=== PATIENT | female | born 1945 | race African-American/Black ===

== ENCOUNTER 2017-08-09 00:58 | Inpatient (IN) | payer MEDICARE, MEDICAID ==
[2017-08-09] VITALS (9 sets, daily range): BP systolic 93–152; BP diastolic 50–116
[~2017-08-09] VITALS: Ht 160 cm; Wt 130.7 kg
[~2017-08-09 00:58] MED LIST: ALPHAGAN P5 M2 OP; AMIODARONE HCL100 MG ORAL; AMIODARONE HCL400 M1 ORAL; BETAMETHASONE V15 GM TP; CARVEDILOL12.5 MG ORAL; CATAPRES0.2 MG ORAL; FUROSEMIDE40 MG ORAL; NORVASC10 MG ORAL; NOVOLOG100 UNIT/3 SUBQ; UNOBMED
[2017-08-09 01:49] LABS: BASOPHILS % (AUTO) 1.1 % (0.0-2.0); EOSINOPHILS % (AUTO) 0.4 % (0.0-3.0); HEMATOCRIT 39.8 % (37.0-47.0); HEMOGLOBIN 12.2 G/DL (12.0-16.0); LYMPHOCYTES % (AUTO) 13.7 % (20.0-45.0); MEAN CORPUSCULAR VOLUME 95 FL (80-99); MONOCYTES % (AUTO) 13.4 % (1.0-10.0); NEUTROPHILS % (AUTO) 71.4 % (45.0-75.0); PLATELET COUNT 223 K/UL (150-450); RED CELL DISTRIBUTION WIDTH 16.7 % (11.6-14.8); WHITE BLOOD COUNT 10.6 K/UL (4.8-10.8)
[2017-08-09 02:09] LABS: INR 1.1 (0.9-1.1)
[2017-08-09] MEDS: DEXTROSE 10% IV SCH ×2 (02:16→08:01)
[2017-08-09 02:18] LABS: ALANINE AMINOTRANSFERASE 13 U/L (12-78); ALBUMIN 2.3 G/DL (3.4-5.0); ALBUMIN/GLOBULIN RATIO 0.4 (1.0-2.7); ALKALINE PHOSPHATASE 104 U/L (46-116); ANION GAP 11 mmol/L (5-15); ASPARTATE AMINO TRANSFERASE 21 U/L (15-37); BILIRUBIN,TOTAL 1.3 MG/DL (0.2-1.0); BLOOD UREA NITROGEN 45 mg/dL (7-18); CALCIUM 8.5 MG/DL (8.5-10.1); CARBON DIOXIDE 23 MMOL/L (21-32); CHLORIDE 100 MMOL/L (98-107); CREATININE 5.9 MG/DL (0.55-1.30); SODIUM 135 MMOL/L (136-145)
[2017-08-09 02:20] LABS: POTASSIUM 7.1 MMOL/L (3.5-5.1)
[2017-08-09 02:21] LABS: BILIRUBIN,DIRECT 0.2 MG/DL (0.0-0.3)
[2017-08-09] MEDS ORDERED: Sodium Bicarbonate 50ml Carp IV ONE ×2 (02:30→07:30)
[2017-08-09] MEDS ORDERED: Sodium Polystyrene Sulfonate 15gm Powder ORAL ONE (02:30)
[2017-08-09] MEDS ORDERED: Calcium Gluconate 1gm/10ml vial IVP ONE ×2 (02:30→07:30)
--- NOTE | 2017-08-09 02:32 | Emergency Room Report ---
History of Present Illness General Chief Complaint: General Complaint Source: Patient, Medical Record, EMS Present Illness HPI Is a 72-year-old female with a history of diabetes, high blood pressure, atrial fibrillation and renal failure and hemodialysis. Her dialysis days are Tuesday, Tuesday, and Tuesday. She was scheduled for dialysis today but has not done. Her grandson called 911 because patient was shaky. Patient said that she's been weak all day. Did not eat. He take her Lantus and glipizide. Denies any nausea vomiting. Her dialysis catheter wasn't working and she had procedure done to open it up yesterday. She denies any fever chills but no nausea no vomiting. No chest pain. Allergies: Coded Allergies: JEREMIAH INHIBITORS (Verified Allergy, Intermediate, 08/09/17) Patient History Past Medical History: see triage record, old chart reviewed, DM, HTN, renal disease, dialysis Past Surgical History: other Pertinent Family History: none Social History: Denies: smoking Now: No Immunizations: other Reviewed Nursing Documentation: PMH: Agreed, PSxH: Agreed Nursing Documentation-PMH Hx Cardiac Problems: Yes - CHF Hx Hypertension: Yes Hx COPD: Yes Hx Diabetes: Yes Hx Dialysis: Yes - M,W,F renal failure Review of Systems Constitutional: Reports: weakness Eye: Denies: eye pain, blurred vision ENT: Denies: ear pain, nose congestion, throat swelling Respiratory: Denies: cough, shortness of breath Cardiovascular: Denies: chest pain, palpitations Gastrointestinal: Denies: abdominal pain, diarrhea, nausea, vomiting Musculoskeletal: Denies: back pain, joint pain Skin: Denies: rash Neurological: Denies: headache, numbness Endocrine: Denies: increased thirst, increased urine Hematologic/Lymphatic: Denies: easy bruising All Other Systems: negative except mentioned in HPI Physical Exam Vital Signs Date Time Temp Pulse Resp B/P (MAP) Pulse Ox O2 Delivery O2 Flow Rate FiO2 08/09/17 00:57 97.9 90 16 122/60 98 Room Air 97.9 vitals normal Sp02 EP Interpretation: reviewed, normal General Appearance: well appearing, no apparent distress, lethargic, obese Head: normocephalic, atraumatic Eyes: bilateral eye PERRL, bilateral eye EOMI ENT: hearing grossly normal, normal pharynx Neck: full range of motion, supple, no meningismus Respiratory: chest non-tender, lungs clear, normal breath sounds Cardiovascular #1: regular rate, rhythm, no murmur Gastrointestinal: normal bowel sounds, non tender, no mass, no organomegaly, no bruit, non-distended Musculoskeletal: back normal, normal range of motion, other - chronic skin thickening secondary to lymhedema of lower extremities Neurologic: grossly normal Psychiatric: mood/affect normal Skin: warm/dry Procedures Critical Care Time Critical Care Time Critical care is mandated in this patient who presented with metabolic encephalopathy secondary to hypoglycemia and hyperkalemia. Patient require my urgent intervention to attenuate the risks of metabolic collapse which may lead to cardiovascular collapse and . Critical care time is 35 minutes excluding any reportable procedure. Critical care time included evaluation, multiple reevaluation, looking at old charts, interpreting laboratory and diagnostic data, discussing case with patient and family and consultants, and charting. Medical Decision Making Diagnostic Impression: Primary Impression: Acute metabolic encephalopathy Additional Impressions: Hypoglycemia Hyperkalemia Atrial fibrillation, controlled Fluid overload Qualified Codes: E87.70 - Fluid overload, unspecified Morbid obesity Lymphedema of both lower extremities ER Course Patient presents with acute altered mental status. Blood glucose was low. She required several rounds of dextrose. I put her on the deep tendon drip. Her hyperkalemia also treated. Patient with knee dialysis. I contacted Dr. Bradley for admission. I have Dr. Bradley patient will come over one to 2 hour timeframe. No response. When the patient to the on-call who happened to be Dr. Kwong. Laboratory Tests Test 08/09/17 01:44 White Blood Count 10.6 K/UL (4.8-10.8) Red Blood Count 4.20 M/UL (4.20-5.40) Hemoglobin 12.2 G/DL (12.0-16.0) Hematocrit 39.8 % (37.0-47.0) Mean Corpuscular Volume 95 FL (80-99) Mean Corpuscular Hemoglobin 29.0 PG (27.0-31.0) Mean Corpuscular Hemoglobin Concent 30.6 G/DL (32.0-36.0) L Red Cell Distribution Width 16.7 % (11.6-14.8) H Platelet Count 223 K/UL (150-450) Mean Platelet Volume 6.6 FL (6.5-10.1) Neutrophils (%) (Auto) 71.4 % (45.0-75.0) Lymphocytes (%) (Auto) 13.7 % (20.0-45.0) L Monocytes (%) (Auto) 13.4 % (1.0-10.0) H Eosinophils (%) (Auto) 0.4 % (0.0-3.0) Basophils (%) (Auto) 1.1 % (0.0-2.0) Prothrombin Time 11.2 SEC (9.30-11.50) Prothromb Time International Ratio 1.1 (0.9-1.1) Sodium Level 135 MMOL/L (136-145) L Potassium Level 7.1 MMOL/L (3.5-5.1) *H Chloride Level 100 MMOL/L (98-107) Carbon Dioxide Level 23 MMOL/L (21-32) Anion Gap 11 mmol/L (5-15) Blood Urea Nitrogen 45 mg/dL (7-18) H Creatinine 5.9 MG/DL (0.55-1.30) H Estimat Glomerular Filtration Rate mL/min (>60) Glucose Level 33 MG/DL (74-106) *L Calcium Level 8.5 MG/DL (8.5-10.1) Total Bilirubin 1.3 MG/DL (0.2-1.0) H Direct Bilirubin 0.2 MG/DL (0.0-0.3) Aspartate Amino Transf (AST/SGOT) 21 U/L (15-37) Alanine Aminotransferase (ALT/SGPT) 13 U/L (12-78) Alkaline Phosphatase 104 U/L (46-116) Troponin I 0.011 ng/mL (0.000-0.056) Total Protein 8.6 G/DL (6.4-8.2) H Albumin 2.3 G/DL (3.4-5.0) L Globulin 6.3 g/dL Albumin/Globulin Ratio 0.4 (1.0-2.7) L Lab Results Impression labs with hypoglycemia and hyperkalemia EKG Diagnostic Results Rate: normal Rhythm: other - afib ST Segments: other - NSST changes ASA given to the pt in ED: No Rhythm Strip Diag. Results Rhythm Strip Time: 02:31 EP Interpretation: yes Rate: 77 Rhythm: no PVC's, no ectopy, other - afib Chest X-Ray Diagnostic Results Chest X-Ray Diagnostic Results : Chest X-Ray Ordered: Yes # of Views/Limited/Complete: 1 View Indication: Shortness of Breath EP Interpretation: Yes Interpretation: no effusion, no pneumothorax, other - CM with vasc congestion Impression: Other - CM with chf Electronically Signed by: Km Busby MD Last Vital Signs Date Time Temp Pulse Resp B/P (MAP) Pulse Ox O2 Delivery O2 Flow Rate FiO2 08/09/17 01:52 97.9 88 22 93/50 98 Room Air 97.9 Status: improved Disposition: ADMITTED INPATIENT Condition: Serious KM BUSBY M.D. Aug 09, 2017 02:32
[2017-08-09] MEDS ORDERED: Morphine Sulfate 4mg/ml Inj IVP ONE (03:15)
[2017-08-09 04:35] LABS: ANION GAP 7 mmol/L (5-15); BLOOD UREA NITROGEN 44 mg/dL (7-18); CALCIUM 8.6 MG/DL (8.5-10.1); CARBON DIOXIDE 26 MMOL/L (21-32); CHLORIDE 100 MMOL/L (98-107); CREATININE 5.9 MG/DL (0.55-1.30); SODIUM 132 MMOL/L (136-145)
[2017-08-09 04:39] LABS: POTASSIUM 8.2 MMOL/L (3.5-5.1)
[2017-08-09] MEDS ORDERED: Glucagon 1mg Inj ONE (04:44)
[2017-08-09] MEDS ORDERED: Glucagon 1mg Inj IV ONE ×2 (04:45→06:00)
[2017-08-09 05:39] LABS: ANION GAP 8 mmol/L (5-15); BLOOD UREA NITROGEN 46 mg/dL (7-18); CALCIUM 8.3 MG/DL (8.5-10.1); CARBON DIOXIDE 25 MMOL/L (21-32); CHLORIDE 101 MMOL/L (98-107); CREATININE 6.1 MG/DL (0.55-1.30); SODIUM 134 MMOL/L (136-145)
[2017-08-09 05:45] LABS: POTASSIUM 6.6 MMOL/L (3.5-5.1)
[2017-08-09] MEDS ORDERED: SandoSTATIN 50mcg Inj IVP ONE ×2 (06:00→06:30)
[2017-08-09] MEDS ORDERED: Heparin Sod 1000 units/ml 10ml IV PRN ×3 (07:00→18:15)
[2017-08-09] MEDS ORDERED: Octreotide Acetate 500 MCG in Sodium Chloride 500ML 499 ML IV ONE (07:30)
[2017-08-09] MEDS ORDERED: Morphine Sulfate 4mg/ml Inj IVP PRN ×2 (08:15→12:00)
[2017-08-09] MEDS ORDERED: Heparin 5000 units/ml inj SUBQ SCH (09:00)
[2017-08-09] MEDS ORDERED: Amiodarone 200mg tab ORAL SCH ×2 (09:00→12:40)
[2017-08-09] MEDS: Docusate 100mg cap ORAL SCH ×2 (09:00→17:48)
[2017-08-09] MEDS ORDERED: Carvedilol 12.5mg tab ORAL SCH (09:00)
[2017-08-09] MEDS ORDERED: Aspirin EC 81mg tab ORAL SCH (09:00)
[2017-08-09] MEDS: Brimonidine 0.2% Opth Sol BOTH EYES SCH ×2 (09:00→17:48)
[2017-08-09] MEDS ORDERED: Nephrovite tab (Rena-Vite) ORAL SCH (09:00)
--- NOTE | 2017-08-09 10:06 | Diagnostic Imaging Report ---
Indication: Dyspnea Comparison: 04/22/2015 A single view chest radiograph was obtained. Findings: There is enlargement of the cardiac silhouette with pulmonary vascular redistribution and prominence, hazy vessel margins and the suggestion of interstitial edema consistent with CHF. Bones are slightly osteopenic. IMPRESSION: Congestive heart failure
[2017-08-09] MEDS ORDERED: Lidocaine 1% MPF 10mg/ml 5ml INJ ONE (12:00)
--- NOTE | 2017-08-09 12:11 | History & Physical ---
History and Physical History & Physicial #[id number] QUITA PRECIADO Aug 09, 2017 12:10
[2017-08-09] MEDS ORDERED: Imdur 30mg tab ORAL SCH (12:15)
--- NOTE | 2017-08-09 18:30 | Cardiology Report ---
APPROVED REPORT EKG Measurement Heart [id number] Atrial fibrillation Abnormal ECG
[2017-08-09] MEDS: Carvedilol 12.5mg tab ORAL SCH (20:14)
[2017-08-09] MEDS: Heparin 5000 units/ml inj SUBQ SCH (20:17)
--- NOTE | 2017-08-09 21:15 | History and Physical Report ---
DATE OF ADMISSION: 08/09/2017 REASON FOR ADMISSION: The patient with end-stage renal disease presented with hypoglycemia and hyperkalemia. HISTORY OF PRESENT ILLNESS: This is a very pleasant 72-year-old female, patient of mine who has had end-stage renal disease secondary to diabetic nephropathy as well as hypertension, has been under my care, getting dialyzed three days a week on Tuesday, Tuesday, and Tuesday. Apparently on Tuesday, she missed her dialysis because she has not been feeling good. She has been very sleepy. She was brought to the emergency room of [facility] on the wee hours of 08/09/2017, was found to have blood sugars in the range of 30s, which was persistent, has been started on D10W at 80 mL/hour in order to keep her blood sugars up. Apparently according to the ER doctor, she has been taking glipizide, however, I do not have any records that she was given glipizide by myself or is on the list of her medications. She apparently has been taking Prandin previously. I am not sure who gave her the glipizide. Subsequently, she has been started on octreotide by the ER doctor and also was found to have a serum potassium of 7.1 mEq per liter and it was decided to be admitted. She denies, however, any chest pain or shortness of breath. She has a wound on the bottom of her left foot, which is under the care of a screen making supervisor at [facility] and she is having a lot of pain in that foot. PAST MEDICAL HISTORY: Significant for end-stage renal disease, chronic obstructive pulmonary disease, type 2 diabetes mellitus, previous congestive heart failure, hypothyroidism, morbid obesity, sleep apnea, which is obstructive in nature. She also has had previous sepsis with bacteremia due to PermCath infection. PAST SURGICAL HISTORY: Status post AV fistula creation on the left arm, status post subsequent transformation of the AV fistula to graft, status post recent thrombectomy of AV graft, history of myomectomy of the uterine fibroma, previous PermCath placement and replacement. MEDICATIONS: Her medications prior to admission have been aspirin 81 mg p.o. daily, Astelin two sprays in each nostril daily, Nephro-Jalen one tablet p.o. daily, amiodarone 200 mg p.o. daily, Coreg 12.5 mg p.o. b.i.d., clonidine 0.1 mg p.o. b.i.d., insulin Lantus 4 units subcutaneous at bedtime, Imdur 60 mg p.o. daily, Synthroid 0.075 mg p.o. daily, nifedipine XL 90 mg p.o. daily, and Protonix 40 mg p.o. daily. ALLERGIES: JEREMIAH inhibitors, which causes swelling and itching. SOCIAL HISTORY: Does not smoke at this point. No alcohol. She used to smoke, quit many years ago. She is a retired and now is in [facility]. FAMILY HISTORY: Breast cancer in the mother, heart disease in her sister, and prostate cancer in her father. REVIEW OF SYSTEMS: GENERAL: She has been feeling very tired. CARDIOVASCULAR: Denies any chest pain, dyspnea with exertion, or orthopnea. SKIN: Denies any rash or photosensitivity. She has a wound on the bottom of her left foot. GENITOURINARY: She is almost anuric, on hemodialysis. NEUROLOGICAL: She has some shooting pain and paresthesia in the lower extremities compatible with neuropathy. HEMATOLOGICAL: Denies any easy bruising or easy bleeding. ENDOCRINE: Blood sugar apparently dropped in the range of 30s and has been persistent. GASTROINTESTINAL: Denies any nausea, vomiting, diarrhea, melena, or hematochezia. RESPIRATORY: Denies any cough, purulent sputum production, hemoptysis, or wheezing. The remainder of her review of the systems has been essentially negative. PHYSICAL EXAMINATION: GENERAL: She does not seem to be in much acute distress, lying down in bed. VITAL SIGNS: Blood pressure is 128/83, pulse of 77, respirations 17, and temperature 97.9 degrees. HEENT: Head is atraumatic. Eyes, pupils reactive to light. No evidence of papilledema. Ears, canals are clear. Tympanic membranes are intact. Nose is patent without any nasal discharge. Throat without inflammation or exudate. NECK: Supple. Jugular venous distention is somewhat increased. No cervical adenopathy. No thyromegaly. HEART: Regular rhythm. No gallop. LUNGS: Clear to auscultation. ABDOMEN: Supple. Bowel sounds positive. No hepatosplenomegaly. EXTREMITIES: Lower extremity shows no cyanosis or clubbing. No pedal edema. NEUROLOGICAL: Cranial nerves are intact. Deep tendon reflexes are symmetrically decreased in both lower extremities. LABORATORY AND DIAGNOSTIC DATA: Sodium of 134, potassium is 6.6 after the cocktail has been given, chloride 101, carbon dioxide 25, BUN 46, and creatinine 6.1. Glucose initially was 33 and now is 103. WBC 10.6, hemoglobin is 12.2, hematocrit 39.8, and platelets of 223. IMPRESSION: 1. End-stage renal disease. 2. Persistent hypoglycemia, possibly due to the fact that she has taken sulfonylurea in the presence of renal failure. I am not sure where she got the glipizide. 3. Type 2 diabetes mellitus, insulin requiring. 4. Left foot diabetic ulcer. 5. Hyperkalemia. PLAN: She is going to be admitted to [facility]. Urgent hemodialysis is going to be ordered. She is also started on D10W, which we will continue at this point. We will discontinue octreotide. Once her sugar is stabilized, she probably can be discharged. Epi Bradley M.D. DR: USHA JOB#: [id number] CC:
[2017-08-09] MEDS: Morphine Sulfate 2mg/ml Inj IVP PRN (22:18)
[2017-08-10] VITALS: BP 112/62
[2017-08-10 04:00] VITALS: BP 137/71
[2017-08-10] MEDS: Morphine Sulfate 2mg/ml Inj IVP PRN ×3 (05:16→20:42)
[2017-08-10 08:00] VITALS: BP 125/78
[2017-08-10] MEDS: Heparin 5000 units/ml inj SUBQ SCH ×2 (09:31→20:40)
[2017-08-10] MEDS: Nephrovite tab (Rena-Vite) ORAL SCH (09:40)
[2017-08-10] MEDS: Aspirin EC 81mg tab ORAL SCH (09:40)
[2017-08-10] MEDS: Amiodarone 200mg tab ORAL SCH (09:40)
[2017-08-10] MEDS: Brimonidine 0.2% Opth Sol BOTH EYES SCH ×2 (09:40→17:20)
[2017-08-10] MEDS: Carvedilol 12.5mg tab ORAL SCH ×2 (09:41→20:42)
[2017-08-10] MEDS: Imdur 30mg tab ORAL SCH (09:41)
[2017-08-10] MEDS: Docusate 100mg cap ORAL SCH ×2 (09:41→17:20)
[2017-08-10 12:00] VITALS: BP 152/99
[2017-08-10 16:00] VITALS: BP 149/83
--- NOTE | 2017-08-10 16:39 | General Progress Note ---
Assessment/Plan Assessment/Plan 1) ESRd 2) Prolonged HD, better now 3) No CHF Plan: Will HD today Accuchecks needs to be checked Subjective Allergies: Coded Allergies: JEREMIAH INHIBITORS (Verified Allergy, Intermediate, 08/09/17) Subjective unfortunaely the nursing staff dropped the ball, the accuchecks were not checked since yesterday, even though the order was there, she had Hd yesterday, she is supposed to have HD today again Objective Last 24 Hour Vital Signs Date Time Temp Pulse Resp B/P (MAP) Pulse Ox O2 Delivery O2 Flow Rate FiO2 08/10/17 14:38 98.2 08/10/17 12:00 98.2 98 22 152/99 94 Room Air 98.2 08/10/17 11:40 95 08/10/17 10:36 92 18 97 Room Air 21 08/10/17 10:33 91 18 96 Room Air 21 08/10/17 08:01 98.6 08/10/17 08:00 98.0 97 22 125/78 93 Room Air 98.0 08/10/17 07:45 94 08/10/17 04:00 93 08/10/17 04:00 98.6 88 20 137/71 94 Room Air 98.6 08/10/17 00:00 93 08/10/17 00:00 98.4 82 20 112/62 94 Room Air 98.4 08/09/17 20:14 79 111/63 08/09/17 20:00 98.1 79 20 111/63 94 Room Air 98.1 08/09/17 20:00 85 Intake and Output 08/09/17 08/10/17 19:00 07:00 Intake Total 940 ml 100 ml Output Total 0 ml 0 ml Balance 940 ml 100 ml Intake Oral 420 ml 100 ml IV Total 520 ml Output Urine Total 0 ml 0 ml # Bowel Movements 4 3 Height (Feet): 5 Height (Inches): 3.00 Weight (Pounds): 130 General Appearance: WD/WN, no apparent distress EENT: PERRL/EOMI Neck: non-tender, normal alignment Cardiovascular: normal rate, regular rhythm, no JVD Respiratory/Chest: lungs clear, decreased breath sounds Abdomen: normal bowel sounds, non tender Extremities: normal range of motion Edema: moderate edema Neurologic: energy conservation director II-XII grossly normal QUITA PRECIADO Aug 10, 2017 16:39
[2017-08-10] MEDS ORDERED: Lidocaine 1% MPF 10mg/ml 5ml INJ SCH (16:45)
[2017-08-10] MEDS: NovoLOG Insulin Flexpen SUBQ SCH ×2 (17:20→20:39)
[2017-08-10 20:00] VITALS: BP 133/59
[2017-08-10] MEDS: Zolpidem 5mg tab ORAL PRN (22:51)
[2017-08-11] VITALS: BP 129/59
[2017-08-11] MEDS: Morphine Sulfate 2mg/ml Inj IVP PRN ×5 (01:11→22:48)
[2017-08-11 04:00] VITALS: BP 139/69
[2017-08-11] MEDS: NovoLOG Insulin Flexpen SUBQ SCH ×4 (05:46→21:21)
[2017-08-11 08:00] VITALS: BP 151/73
[2017-08-11 08:39] LABS: BASOPHILS % (AUTO) 1.6 % (0.0-2.0); EOSINOPHILS % (AUTO) 0.8 % (0.0-3.0); HEMATOCRIT 35.1 % (37.0-47.0); HEMOGLOBIN 10.9 G/DL (12.0-16.0); LYMPHOCYTES % (AUTO) 25.9 % (20.0-45.0); MEAN CORPUSCULAR VOLUME 97 FL (80-99); MONOCYTES % (AUTO) 14.8 % (1.0-10.0); NEUTROPHILS % (AUTO) 56.9 % (45.0-75.0); PLATELET COUNT 196 K/UL (150-450); RED BLOOD COUNT 3.64 M/UL (4.20-5.40); RED CELL DISTRIBUTION WIDTH 16.8 % (11.6-14.8); WHITE BLOOD COUNT 8.9 K/UL (4.8-10.8)
[2017-08-11 08:44] LABS: ANION GAP 8 mmol/L (5-15); BLOOD UREA NITROGEN 39 mg/dL (7-18); CARBON DIOXIDE 29 MMOL/L (21-32); CHLORIDE 99 MMOL/L (98-107); CREATININE 5.2 MG/DL (0.55-1.30); POTASSIUM 4.8 MMOL/L (3.5-5.1); SODIUM 136 MMOL/L (136-145)
[2017-08-11] MEDS: Brimonidine 0.2% Opth Sol BOTH EYES SCH ×2 (09:54→18:25)
[2017-08-11] MEDS: Imdur 30mg tab ORAL SCH (09:56)
[2017-08-11] MEDS: Aspirin EC 81mg tab ORAL SCH (09:57)
[2017-08-11] MEDS: Amiodarone 200mg tab ORAL SCH (09:57)
[2017-08-11] MEDS: Carvedilol 12.5mg tab ORAL SCH ×2 (09:58→21:16)
[2017-08-11] MEDS: Docusate 100mg cap ORAL SCH ×2 (09:58→18:00)
[2017-08-11] MEDS: Nephrovite tab (Rena-Vite) ORAL SCH (09:58)
[2017-08-11] MEDS: Heparin 5000 units/ml inj SUBQ SCH ×2 (09:59→21:20)
--- NOTE | 2017-08-11 11:21 | Wound Care Consultation ---
Wound Assessment Wound Assessment #1: Wound Number: 1 Wound Present on Admission: Yes New Wound: No Status Change of Wound: No Wound Location Body Site Modif: mid Wound Location Body Site: other - sacrococcygeal Wound Type: pressure ulcer Keturah Test: Does not Keturah Pressure Ulcer Stage: Deep Tissue Injury Wound Thickness: Full Thickness Wound Length: 7.5 Wound Width: 6.5 Wound Depth: utd Percent of Wound Purple/Maroon: 100 Wound Drainage Amount: None Wound Drainage Odor: None/Absent Tissue Surrounding Wound: Erythemic Wound General Appearance: Reddened - purple Wound Assessment #2: Wound Number: 2 Wound Present on Admission: Yes New Wound: No Status Change of Wound: No Wound Location Body Site Modif: left, plantar Wound Location Body Site: foot Wound Type: other Keturah Test: Does not Keturah Vascular Issues: diabetic foot ulcers Wound Thickness: Full Thickness Wound Length: 9.0 Wound Width: 5.5 Wound Depth: utd Percent of Wound Bed Yellow/Wh: 60 Percent of Wound Purple/Maroon: 40 Wound Drainage Description: Serosanguineous Wound Drainage Amount: Moderate Wound Drainage Odor: None/Absent Tissue Surrounding Wound: Indurated Wound General Appearance: Reddened - yellow, Draining Wound Assessment #3: Wound Number: 3 Wound Present on Admission: Yes New Wound: No Status Change of Wound: No Wound Location Body Site Modif: right, plantar Wound Location Body Site: foot - and 1st metatarsal head Keturah Test: Does not Keturah Vascular Issues: diabetic foot ulcers Wound Thickness: Full Thickness Percent of Wound Purple/Maroon: 100 Wound Drainage Amount: None Wound Drainage Odor: None/Absent Tissue Surrounding Wound: Intact Wound General Appearance: Reddened - maroon Wound Comment #1 Sacrococcygeal SDTI pressure ulcer #2 Left plantar foot and heel diabetic foot ulcer. Surrounding skin with Maroon discoloration and indurated. #3 Right plantar foot and 1st metatarsal head with maroon discoloration. Possible s/p callus removal. #4 Chemical burn on abdominal folds Recommendation -Local wound per protocol on sacrococcygeal area -Keep clean and dry -Offload both heels -Heel protector on both heels -Optimize nutrition -Turn and reposition -Low air loss mattress -Podiatry consult for diabetic foot ulcer and callus on left and right foot -Assess and f/u accordingly for any changes OLY ELMORE RN Aug 11, 2017 11:21
[2017-08-11 12:00] VITALS: BP 124/70
--- NOTE | 2017-08-11 15:52 | Consultation ---
Consult Note Assessment/Plan A/ 1) Diabetic foot ulcer - infected - possible FB 2) DM 3) ESRD 4) Lymphedema 5) Obese P/ 1) Cultures of left foot pending 2) Start Vanco pharmacy dosing 3) Arterial ultz BLE 4) MRI left ankle to evaluate for osteo, possible foreign body 5) Wound care orders changed 6) Will follow Thank you Baltazar Nichols DPM Aug 11, 2017 15:52
--- NOTE | 2017-08-11 15:57 | General Progress Note ---
Assessment/Plan Assessment/Plan 1) ESRd 2) Prolonged hypoglycemia, better now 3) No CHF 4) diabetic heel ulcer, R/o osteo Plan: Will HD tomorrow podiatry consult IV vanco MRI of the L foot Subjective Allergies: Coded Allergies: JEREMIAH INHIBITORS (Verified Allergy, Intermediate, 08/09/17) Subjective She is having an ulcer on the L heel with pain, no c/p or sob, she was dialyzed yesterday Objective Last 24 Hour Vital Signs Date Time Temp Pulse Resp B/P (MAP) Pulse Ox O2 Delivery O2 Flow Rate FiO2 08/11/17 12:00 97.7 74 20 124/70 96 Room Air 97.7 08/11/17 10:13 83 18 97 Room Air 21 08/11/17 10:12 82 18 97 Room Air 21 08/11/17 09:58 80 151/73 08/11/17 09:57 80 151/73 08/11/17 09:56 151/73 08/11/17 08:00 96 08/11/17 08:00 97.2 80 20 151/73 95 Room Air 97.2 08/11/17 05:57 98.4 08/11/17 05:27 98.4 08/11/17 04:00 98.4 84 20 139/69 94 Room Air 98.4 08/11/17 04:00 82 08/11/17 01:11 98.0 08/11/17 00:00 98.0 75 20 129/59 100 Room Air 98.0 08/11/17 00:00 80 08/10/17 20:42 98.0 08/10/17 20:42 75 133/59 08/10/17 20:07 Room Air 21 08/10/17 20:05 Room Air 21 08/10/17 20:00 98.7 75 20 133/59 100 Room Air 98.7 08/10/17 19:43 77 08/10/17 18:53 Room Air 21 08/10/17 16:00 98.0 91 20 149/83 100 Room Air 98.0 08/10/17 16:00 93 Intake and Output 08/10/17 08/11/17 19:00 07:00 Intake Total 240 ml 2400 ml Output Total 0 ml 2100 ml Balance 240 ml 300 ml Intake Oral 240 ml 300 ml Hemodialysis 2100 ml Output Urine Total 0 ml Hemodialysis UF 2100 ml # Bowel Movements 4 1 Laboratory Tests 08/11/17 07:30: White Blood Count 8.9, Red Blood Count 3.64L, Hemoglobin 10.9L, Hematocrit 35.1L , Mean Corpuscular Volume 97, Mean Corpuscular Hemoglobin 29.9, Mean Corpuscular Hemoglobin Concent 31.0L, Red Cell Distribution Width 16.8H, Platelet Count 196, Mean Platelet Volume 7.0, Neutrophils (%) (Auto) 56.9, Lymphocytes (%) (Auto) 25.9, Monocytes (%) (Auto) 14.8H, Eosinophils (%) (Auto) 0.8, Basophils (%) (Auto) 1.6, Sodium Level 136, Potassium Level 4.8, Chloride Level 99, Carbon Dioxide Level 29, Anion Gap 8, Blood Urea Nitrogen 39H, Creatinine 5.2H, Estimat Glomerular Filtration Rate , Glucose Level 137H, Calcium Level 8.0L Height (Feet): 5 Height (Inches): 3.00 Weight (Pounds): 255 General Appearance: WD/WN, no apparent distress EENT: PERRL/EOMI, normal ENT inspection Neck: non-tender, normal alignment, supple Cardiovascular: normal rate - high, regular rhythm, JVD Respiratory/Chest: chest wall non-tender, lungs clear Abdomen: normal bowel sounds, non tender Extremities: normal range of motion Edema: moderate edema Neurologic: tightener II-XII grossly normal, alert QUITA PRECIADO Aug 11, 2017 15:57
[2017-08-11 16:00] VITALS: BP 126/97
[2017-08-11] MEDS ORDERED: Vancomycin 1250mg/D5W 250ml IVPB ONE (18:00)
[2017-08-11 20:00] VITALS: BP 122/59
[2017-08-11] MEDS: Zolpidem 5mg tab ORAL PRN (21:16)
[2017-08-11] MEDS: Piperacillin/Tazobactam 2.25 GM in NS 55 ML IVPB SCH (21:28)
--- NOTE | 2017-08-11 23:15 | Consultation ---
DATE OF CONSULTATION: 08/11/2017 CONSULTING PHYSICIAN: Baltazar Patton D.P.M. REQUESTING PHYSICIAN: Epi Bradley M.D. REASON FOR CONSULTATION: Diabetic foot ulcer, possible infection, and possible foreign body. HISTORY OF PRESENT ILLNESS: The patient is a 72-year-old female who was admitted to [facility] on August 09, 2017, for hyperkalemia and hypoglycemia. The patient states that she has history of left foot ulcer on the bottom of her foot for approximately 3 months. She believes that she stepped on a piece of glass that went through her shoe and into her foot. She states that the wound has pretty much been static until the past few days where the left foot has become increasingly more painful and she has lost the ability to be able to ambulate with the foot. PAST MEDICAL HISTORY: Significant for end-stage renal disease, on dialysis, chronic obstructive pulmonary disease, type 2 diabetes mellitus, congestive heart failure, hypothyroidism, morbid obesity, sleep apnea, and previous history of sepsis from PermCath placement. PAST SURGICAL HISTORY: Includes AV fistula, myomectomy of uterine fibroma. ALLERGIES: She is allergic to JEREMIAH inhibitors. MEDICATIONS: Per MAR and include 81 mg of aspirin. She is on Nephro-Jalen, gabapentin, heparin for DVT prophylaxis. FAMILY HISTORY: Noncontributory. SOCIAL HISTORY: Noncontributory. REVIEW OF SYSTEMS: HEENT: The patient denies any headaches, blurred vision, or ringing in the ears. CARDIORESPIRATORY: The patient denies any chest pain or shortness of breath. GENITOURINARY: The patient denies any urgency, frequency, burning upon urination, or hematuria. GASTROINTESTINAL: The patient denies any constipation, diarrhea, or blood in stool. PHYSICAL EXAMINATION: VITAL SIGNS: Temperature is 97.7, pulse is 74, respirations 20, blood pressure is 124/70, and saturating 96% on room air. EXTREMITIES: Lower extremity physical exam, vascular, nonpalpable pedal pulses noted bilaterally. Feet are equally warm. There is nonpitting edema noted in bilateral lower extremities. No cyanosis of the toes noted. DERMATOLOGICAL: Right foot is unremarkable. There are stasis changes on the bilateral legs. Plantar left foot, there are two small ulcerations appearing superficial in nature. No purulence is expressed from the site. They are painful to palpation. No bone or tendon exposed. The wound base is fibrotic. No erythematous changes are noted in the periwound skin. No drainage is noted from the sites. NEUROLOGICAL: Protective threshold is intact. Achilles deep tendon reflexes 2+ bilateral. No spasticity noted. MUSCULOSKELETAL: There is 4/5 muscle strength noted in anterior, lateral, and posterior muscle groups of bilateral lower extremities. No gross deformities are noted. LABORATORY DATA: White blood cell count is 8.9, hemoglobin and hematocrit is 10.9 and 35.1, and platelet count is 196,000. Potassium is 4.8, BUN is 39, creatinine is 5.2, glucose is 137. Hemoglobin A1c is 8.5. Albumin is 2.3. Coagulation, INR is 1.1, PT is 11.2. No lower extremity imaging is noted. ASSESSMENT: 1. Diabetic foot ulcer, possibly infected, possible foreign body. 2. Diabetes mellitus. 3. End-stage renal disease, on dialysis. 4. Lymphedema. 5. Obese. PLAN: 1. Culture of the left foot is pending. 2. Start vancomycin per pharmacy dosing as well as Zosyn pharmacy dosing. 3. Arterial ultrasound, bilateral lower extremities. 4. MRI of the left ankle to evaluate for osteomyelitis, possible foreign body. 5. Wound care orders changed to include cleaning the site with normal saline, patting it dry, applying calcium alginate, and dry dressing daily. 6. We will follow. Thank you for the courtesy of this consultation. Baltazar Patton D.P.M. DR: Reina JOB#: [id number] CC: Epi Bradley M.D.; Fax#: [phone]
[2017-08-12] VITALS (8 sets, daily range): BP systolic 103–114; BP diastolic 56–61
[2017-08-12] MEDS: Piperacillin/Tazobactam 2.25 GM in NS 55 ML IVPB SCH ×3 (06:13→22:20)
[2017-08-12] MEDS: NovoLOG Insulin Flexpen SUBQ SCH ×4 (06:15→21:00)
[2017-08-12] MEDS: Heparin Sod 1000 units/ml 10ml IV SCH (06:16)
[2017-08-12] MEDS: Brimonidine 0.2% Opth Sol BOTH EYES SCH ×2 (08:52→17:42)
[2017-08-12] MEDS: Aspirin EC 81mg tab ORAL SCH (08:52)
[2017-08-12] MEDS: Nephrovite tab (Rena-Vite) ORAL SCH (08:52)
[2017-08-12] MEDS: Docusate 100mg cap ORAL SCH ×3 (08:53→17:46)
[2017-08-12] MEDS: Imdur 30mg tab ORAL SCH (08:55)
[2017-08-12] MEDS: Heparin 5000 units/ml inj SUBQ SCH ×2 (08:55→22:19)
[2017-08-12] MEDS: Carvedilol 12.5mg tab ORAL SCH ×2 (08:56→20:21)
[2017-08-12] MEDS: Amiodarone 200mg tab ORAL SCH (09:00)
[2017-08-12] MEDS: Morphine Sulfate 2mg/ml Inj IVP PRN (11:34)
--- NOTE | 2017-08-12 13:55 | Diagnostic Imaging Report ---
Indication: Ulceration, swelling of the ankle and pain. Cellulitis. Technique: Left ankle/hindfoot imaging utilizing multiplanar T1 fast spin-echo, proton and T2 fast spin-echo with fat saturation, and STIR. Comparison: None Findings: There is extensive subcutaneous edema demonstrated. There is no obvious abscess. There is no evidence of bone marrow edema to suggest acute osteomyelitis. There is no joint effusion. The study was not protocoled for evaluation of the internal derangement. Bone marrow signal is abnormal and diffusely void of T1 hyperintense fat signal (cellular marrow). This is a nonspecific finding and has many potential underlying etiologies including various causes of bone marrow fat depletion, red marrow reconversion or hyperplasia and replacement. (e.g. hemoglobinopathies, various myelopathies, leukemias, infiltrative diseases of bone marrow, etc.) Impression No evidence of acute osteomyelitis. Extensive subcutaneous edema nonspecific in nature presumably due to cellulitis. Diffuse abnormal bone marrow signal. Large differential diagnosis.
[2017-08-12] MEDS ORDERED: Lidocaine 1% MPF 10mg/ml 5ml INJ PRN (14:45)
--- NOTE | 2017-08-12 16:36 | General Progress Note ---
Assessment/Plan Assessment/Plan 1) ESRd 2) Prolonged hypoglycemia, better now 3) No CHF 4) diabetic heel ulcer, R/o osteo Plan: Awaiting HD today Subjective Allergies: Coded Allergies: JEREMIAH INHIBITORS (Verified Allergy, Intermediate, 08/09/17) Subjective She is doing ok, no c/p or sob Objective Last 24 Hour Vital Signs Date Time Temp Pulse Resp B/P (MAP) Pulse Ox O2 Delivery O2 Flow Rate FiO2 08/12/17 16:00 98.2 91 20 107/59 93 Room Air 98.2 08/12/17 12:00 97.7 83 16 107/57 93 Room Air 97.7 08/12/17 12:00 91 08/12/17 08:56 83 110/58 08/12/17 08:55 110/58 08/12/17 08:53 83 110/58 08/12/17 08:31 90 18 98 Room Air 21 08/12/17 08:31 90 18 98 Room Air 21 08/12/17 08:00 97.7 83 18 110/58 94 Room Air 97.7 08/12/17 08:00 91 08/12/17 04:00 98.1 91 20 103/57 94 Room Air 98.1 08/12/17 04:00 85 08/12/17 00:00 95 08/12/17 00:00 98.1 74 20 112/56 94 Room Air 98.1 08/11/17 21:16 79 122/59 08/11/17 20:00 98.2 79 20 122/59 95 Room Air 98.2 08/11/17 19:27 89 Intake and Output 08/11/17 08/12/17 19:00 07:00 Intake Total 240 ml 326.667 ml Output Total 0 ml Balance 240 ml 326.667 ml Intake Oral 240 ml 50 ml IV Total 276.667 ml Output Urine Total 0 ml # Bowel Movements 2 Height (Feet): 5 Height (Inches): 3.00 Weight (Pounds): 268 General Appearance: WD/WN, no apparent distress EENT: PERRL/EOMI Neck: non-tender, normal alignment Cardiovascular: normal rate, regular rhythm, no JVD Respiratory/Chest: lungs clear, normal breath sounds Abdomen: normal bowel sounds, non tender Extremities: normal range of motion 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
[2017-08-12] MEDS ORDERED: Zolpidem 5mg tab ORAL PRN (18:15)
[2017-08-13] VITALS: BP 110/60
[2017-08-13] MEDS: Morphine Sulfate 2mg/ml Inj IVP PRN ×3 (00:34→22:22)
[2017-08-13 04:00] VITALS: BP 100/60
[2017-08-13] MEDS: NovoLOG Insulin Flexpen SUBQ SCH ×4 (05:18→22:10)
[2017-08-13] MEDS: Piperacillin/Tazobactam 2.25 GM in NS 55 ML IVPB SCH ×3 (05:18→22:12)
[2017-08-13] MEDS: Heparin Sod 1000 units/ml 10ml IV SCH (06:00)
--- NOTE | 2017-08-13 07:39 | Podiatric Progress Note ---
Assessment/Plan Patient Kajal Dixon is a 72 year old female who was admitted on Aug 09, 2017 at 07:03 with Problems: Assessment/Plan A/ 1) Diabetic foot ulcer - cellulitic 2) DM 3) ESRD 4) Lymphedema 5) Obese P/ 1) Cultures of left foot reviewed - patient on Vanco/Zosyn - sensitivities pending 2) Arterial ultz BLE - pending 3) MRI left ankle to reviewed - NEG for osteo, NEG for FB 4) Cont wound care orders 5) Will follow Subjective Allergies: Coded Allergies: JEREMIAH INHIBITORS (Verified Allergy, Intermediate, 08/09/17) Subjective Patient cont to have pain in the left foot Objective Exam Last 24 Hour Vital Signs Date Time Temp Pulse Resp B/P (MAP) Pulse Ox O2 Delivery O2 Flow Rate FiO2 08/13/17 04:00 87 08/13/17 04:00 98.2 80 20 100/60 Room Air 98.2 08/13/17 01:04 98.2 08/13/17 00:34 98.2 08/13/17 00:00 98.2 80 18 110/60 Room Air 98.2 08/12/17 22:00 Room Air 08/12/17 22:00 98.2 85 20 114/60 Room Air 98.2 08/12/17 21:22 98.2 08/12/17 20:23 98.2 08/12/17 20:21 84 109/61 08/12/17 20:00 97.9 88 18 109/61 95 Room Air 97.9 08/12/17 20:00 88 08/12/17 18:00 Room Air 08/12/17 18:00 97.7 87 20 109/61 Room Air 97.7 08/12/17 16:00 98.2 91 20 107/59 93 Room Air 98.2 08/12/17 16:00 83 08/12/17 12:00 97.7 83 16 107/57 93 Room Air 97.7 08/12/17 12:00 91 08/12/17 08:56 83 110/58 08/12/17 08:55 110/58 08/12/17 08:53 83 110/58 08/12/17 08:31 90 18 98 Room Air 21 08/12/17 08:31 90 18 98 Room Air 21 08/12/17 08:00 97.7 83 18 110/58 94 Room Air 97.7 08/12/17 08:00 91 Laboratory Tests Test 08/13/17 03:15 Random Vancomycin Level 7.9 ug/mL Microbiology Date/Time Source Procedure Growth Status 08/09/17 04:23 Nasal Nares MRSA Culture - Final NO METHICILLIN RESISTANT STAPH AUREUS... Complete 08/11/17 10:00 Foot Left Gram Stain - Final Resulted 08/11/17 10:00 Wound Culture - Preliminary Strep Species, Gamma-Hemolytic Resulted Dermatological Dermatological Narrative Left foot wound is edematous, small amount of serosang drainage noted from the site. Painful to palpation. Wound margins have dried blisters. Baltazar Patton DPM Aug 13, 2017 07:39
[2017-08-13 08:00] VITALS: BP 130/74
[2017-08-13] MEDS ORDERED: Vancomycin 1.5 GM/D5W 250ML IVPB ONE (08:00)
[2017-08-13] MEDS: Docusate 100mg cap ORAL SCH ×2 (08:56→17:59)
[2017-08-13] MEDS: Nephrovite tab (Rena-Vite) ORAL SCH (08:56)
[2017-08-13] MEDS: Amiodarone 200mg tab ORAL SCH (08:56)
[2017-08-13] MEDS: Aspirin EC 81mg tab ORAL SCH (08:56)
[2017-08-13] MEDS: Brimonidine 0.2% Opth Sol BOTH EYES SCH ×2 (08:56→17:59)
[2017-08-13] MEDS: Imdur 30mg tab ORAL SCH (08:57)
[2017-08-13] MEDS: Carvedilol 12.5mg tab ORAL SCH ×2 (08:57→21:54)
[2017-08-13] MEDS: Heparin 5000 units/ml inj SUBQ SCH ×2 (09:14→21:57)
[2017-08-13 11:53] VITALS: BP 119/61
[2017-08-13 16:00] VITALS: BP 103/52
--- NOTE | 2017-08-13 16:56 | General Progress Note ---
Assessment/Plan Assessment/Plan 1) ESRd 2) Prolonged hypoglycemia, better now 3) No CHF 4) diabetic heel ulcer, R/o osteo Plan: IV ATB's Transfer to Med-surg Subjective Allergies: Coded Allergies: JEREMIAH INHIBITORS (Verified Allergy, Intermediate, 08/09/17) Subjective She is doing ok, no c/p or sob, is on IV ATB's for the L foot wound Objective Last 24 Hour Vital Signs Date Time Temp Pulse Resp B/P (MAP) Pulse Ox O2 Delivery O2 Flow Rate FiO2 08/13/17 12:00 88 08/13/17 11:53 97.9 84 18 119/61 95 Room Air 97.9 08/13/17 08:57 96 130/74 08/13/17 08:57 130/74 08/13/17 08:57 96 130/74 08/13/17 08:43 96 16 93 Room Air 21 08/13/17 08:43 96 16 93 Room Air 21 08/13/17 08:00 98.2 87 20 130/74 93 Room Air 98.2 08/13/17 08:00 92 08/13/17 04:00 87 08/13/17 04:00 98.2 80 20 100/60 Room Air 98.2 08/13/17 01:04 98.2 08/13/17 00:34 98.2 08/13/17 00:00 98.2 80 18 110/60 Room Air 98.2 08/12/17 22:00 Room Air 08/12/17 22:00 98.2 85 20 114/60 Room Air 98.2 08/12/17 21:22 98.2 08/12/17 20:23 98.2 08/12/17 20:21 84 109/61 08/12/17 20:00 97.9 88 18 109/61 95 Room Air 97.9 08/12/17 20:00 88 08/12/17 18:00 Room Air 08/12/17 18:00 97.7 87 20 109/61 Room Air 97.7 Intake and Output 08/12/17 08/13/17 19:00 07:00 Intake Total 351 ml 2755 ml Output Total 0 ml 2500 ml Balance 351 ml 255 ml Intake Oral 240 ml 400 ml IV Total 111 ml 55 ml Hemodialysis 2300 ml Output Urine Total 0 ml Hemodialysis UF 2500 ml Laboratory Tests 08/13/17 03:15: Random Vancomycin Level 7.9 Height (Feet): 5 Height (Inches): 3.00 Weight (Pounds): 268 General Appearance: WD/WN, no apparent distress EENT: PERRL/EOMI Neck: non-tender, normal alignment Cardiovascular: normal peripheral pulses, normal rate, no JVD Respiratory/Chest: chest wall non-tender, lungs clear 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
[2017-08-13 20:00] VITALS: BP 108/57
[2017-08-14] VITALS (7 sets, daily range): BP systolic 113–132; BP diastolic 54–67
[2017-08-14] MEDS: Zolpidem 5mg tab ORAL PRN ×2 (01:22→23:45)
[2017-08-14] MEDS: Morphine Sulfate 2mg/ml Inj IVP PRN ×3 (03:00→13:03)
[2017-08-14] MEDS: Piperacillin/Tazobactam 2.25 GM in NS 55 ML IVPB SCH ×3 (05:50→20:57)
[2017-08-14] MEDS: NovoLOG Insulin Flexpen SUBQ SCH ×4 (06:06→20:43)
[2017-08-14] MEDS: Carvedilol 12.5mg tab ORAL SCH ×2 (09:59→20:42)
[2017-08-14] MEDS: Imdur 30mg tab ORAL SCH (10:00)
[2017-08-14] MEDS: Aspirin EC 81mg tab ORAL SCH (10:00)
[2017-08-14] MEDS: Amiodarone 200mg tab ORAL SCH (10:00)
[2017-08-14] MEDS: Nephrovite tab (Rena-Vite) ORAL SCH (10:01)
[2017-08-14] MEDS: Docusate 100mg cap ORAL SCH ×2 (10:02→18:07)
[2017-08-14] MEDS: Heparin 5000 units/ml inj SUBQ SCH ×2 (10:04→20:44)
[2017-08-14] MEDS: Brimonidine 0.2% Opth Sol BOTH EYES SCH ×2 (10:05→18:07)
[2017-08-14] MEDS ORDERED: Lidocaine 1% MPF 10mg/ml 5ml INJ PRN (14:45)
[2017-08-14] MEDS ORDERED: Tubing IV Secondary IV ONE (17:23)
[2017-08-14] MEDS ORDERED: NS 275ml ONE (17:23)
[2017-08-14] MEDS ORDERED: Zolpidem 5mg tab ORAL PRN (18:15)
--- NOTE | 2017-08-14 18:17 | General Progress Note ---
Assessment/Plan Assessment/Plan 1) ESRd 2) Prolonged hypoglycemia, better now 3) No CHF 4) diabetic heel ulcer, R/o osteo Plan: IV ATB's Podiatry to follow HD tomorrow Subjective Allergies: Coded Allergies: JEREMIAH INHIBITORS (Verified Allergy, Intermediate, 08/09/17) Subjective She is doing ok, no c/p or sob, the wound is growing enterococcus fecalis, still alot of pain Objective Last 24 Hour Vital Signs Date Time Temp Pulse Resp B/P (MAP) Pulse Ox O2 Delivery O2 Flow Rate FiO2 08/14/17 15:57 99.2 88 19 113/64 92 99.2 08/14/17 12:00 98.7 106 19 132/66 95 98.7 08/14/17 12:00 Room Air 08/14/17 10:02 102 132/64 08/14/17 10:00 132/64 08/14/17 09:59 102 132/64 08/14/17 09:51 102 132/64 08/14/17 09:30 Room Air 21 08/14/17 09:30 90 16 95 Room Air 21 08/14/17 08:00 Room Air 08/14/17 08:00 95.6 91 19 125/67 93 95.6 08/14/17 04:00 97.9 86 20 125/57 93 Room Air 97.9 08/14/17 00:00 99.3 98 19 114/54 99.3 08/13/17 21:54 90 108/57 08/13/17 20:00 98.4 90 16 108/57 94 98.4 Intake and Output 08/13/17 08/14/17 19:00 07:00 Intake Total 905 ml 110 ml Balance 905 ml 110 ml Intake Oral 600 ml IV Total 305 ml 110 ml # Voids 1 # Bowel Movements 2 Height (Feet): 5 Height (Inches): 3.00 Weight (Pounds): 266 General Appearance: WD/WN, no apparent distress, alert EENT: PERRL/EOMI Neck: non-tender, normal alignment, supple Cardiovascular: normal rate, no JVD Respiratory/Chest: lungs clear Abdomen: normal bowel sounds, non tender Extremities: normal range of motion, non-tender Edema: moderate edema 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
[2017-08-14] MEDS: HYDROcodone/Acetamin 10/325 tab ORAL PRN (18:59)
[2017-08-15] VITALS (7 sets, daily range): BP systolic 106–122; BP diastolic 60–65
[2017-08-15] MEDS: Morphine Sulfate 2mg/ml Inj IVP PRN ×2 (02:29→19:11)
[2017-08-15] MEDS: Piperacillin/Tazobactam 2.25 GM in NS 55 ML IVPB SCH ×3 (06:12→21:56)
[2017-08-15] MEDS: HYDROcodone/Acetamin 10/325 tab ORAL PRN ×3 (06:12→23:05)
[2017-08-15] MEDS: NovoLOG Insulin Flexpen SUBQ SCH ×5 (06:21→22:00)
[2017-08-15] MEDS: Brimonidine 0.2% Opth Sol BOTH EYES SCH ×2 (08:42→18:58)
[2017-08-15] MEDS: Aspirin EC 81mg tab ORAL SCH (08:43)
[2017-08-15] MEDS: Nephrovite tab (Rena-Vite) ORAL SCH (08:43)
[2017-08-15] MEDS: Docusate 100mg cap ORAL SCH ×2 (08:43→18:58)
[2017-08-15] MEDS: Heparin 5000 units/ml inj SUBQ SCH ×2 (08:48→22:01)
[2017-08-15] MEDS: Imdur 30mg tab ORAL SCH (09:00)
[2017-08-15] MEDS: Carvedilol 12.5mg tab ORAL SCH ×2 (09:00→21:56)
[2017-08-15] MEDS: Amiodarone 200mg tab ORAL SCH (09:00)
[2017-08-15] MEDS ORDERED: NS 275ml ONE (10:02)
[2017-08-15] MEDS ORDERED: Tubing IV Secondary IV ONE (10:02)
[2017-08-15 13:23] LABS: BASOPHILS % (AUTO) 1.6 % (0.0-2.0); EOSINOPHILS % (AUTO) 1.3 % (0.0-3.0); HEMOGLOBIN 9.8 G/DL (12.0-16.0); LYMPHOCYTES % (AUTO) 28.4 % (20.0-45.0); MEAN CORPUSCULAR VOLUME 97 FL (80-99); MONOCYTES % (AUTO) 16.7 % (1.0-10.0); PLATELET COUNT 286 K/UL (150-450); RED BLOOD COUNT 3.29 M/UL (4.20-5.40); RED CELL DISTRIBUTION WIDTH 15.9 % (11.6-14.8); WHITE BLOOD COUNT 9.3 K/UL (4.8-10.8)
[2017-08-15 13:25] LABS: ANION GAP 9 mmol/L (5-15); BLOOD UREA NITROGEN 75 mg/dL (7-18); CALCIUM 7.8 MG/DL (8.5-10.1); CARBON DIOXIDE 26 MMOL/L (21-32); CHLORIDE 97 MMOL/L (98-107); CREATININE 6.5 MG/DL (0.55-1.30); SODIUM 132 MMOL/L (136-145)
[2017-08-15 13:36] LABS: POTASSIUM 6.3 MMOL/L (3.5-5.1)
--- NOTE | 2017-08-15 17:23 | Podiatric Progress Note ---
Assessment/Plan Patient Kajal Dixon is a 72 year old female who was admitted on Aug 09, 2017 at 07:03 with Problems: Assessment/Plan A/ 1) Diabetic foot ulcer - cellulitic 2) DM 3) ESRD 4) Lymphedema 5) Obese P/ 1) Cultures of left foot reviewed - patient on Vanco/Zosyn - sensitivities pending 2) Arterial ultz BLE - pending 3) MRI left ankle to reviewed - NEG for osteo, NEG for FB 4) Cont wound care orders 5) Will follow Subjective Allergies: Coded Allergies: JEREMIAH INHIBITORS (Verified Allergy, Intermediate, 08/09/17) Objective Exam Last 24 Hour Vital Signs Date Time Temp Pulse Resp B/P (MAP) Pulse Ox O2 Delivery O2 Flow Rate FiO2 08/15/17 16:00 98.1 94 20 107/63 92 98.1 08/15/17 12:00 98.1 93 20 114/62 93 98.1 08/15/17 12:00 98.1 93 20 114/62 93 Room Air 98.1 08/15/17 09:00 93 114/62 08/15/17 09:00 114/62 08/15/17 09:00 93 114/62 08/15/17 08:31 89 16 94 Room Air 21 08/15/17 08:31 89 16 94 Room Air 21 08/15/17 08:00 98.2 90 20 122/65 94 Room Air 98.2 08/15/17 04:04 97.7 88 19 109/61 94 97.7 08/15/17 04:00 Room Air 08/15/17 00:00 98.2 88 20 106/60 94 Room Air 98.2 08/14/17 20:42 86 115/58 08/14/17 20:00 98.1 86 20 115/58 95 98.1 08/14/17 20:00 86 Room Air Laboratory Tests Test 08/15/17 05:50 White Blood Count 9.3 K/UL (4.8-10.8) Red Blood Count 3.29 M/UL (4.20-5.40) L Hemoglobin 9.8 G/DL (12.0-16.0) L Hematocrit 32.0 % (37.0-47.0) L Mean Corpuscular Volume 97 FL (80-99) Mean Corpuscular Hemoglobin 29.8 PG (27.0-31.0) Mean Corpuscular Hemoglobin Concent 30.7 G/DL (32.0-36.0) L Red Cell Distribution Width 15.9 % (11.6-14.8) H Platelet Count 286 K/UL (150-450) Mean Platelet Volume 5.7 FL (6.5-10.1) L Neutrophils (%) (Auto) 52.0 % (45.0-75.0) Lymphocytes (%) (Auto) 28.4 % (20.0-45.0) Monocytes (%) (Auto) 16.7 % (1.0-10.0) H Eosinophils (%) (Auto) 1.3 % (0.0-3.0) Basophils (%) (Auto) 1.6 % (0.0-2.0) Sodium Level 132 MMOL/L (136-145) L Potassium Level 6.3 MMOL/L (3.5-5.1) *H Chloride Level 97 MMOL/L (98-107) L Carbon Dioxide Level 26 MMOL/L (21-32) Anion Gap 9 mmol/L (5-15) Blood Urea Nitrogen 75 mg/dL (7-18) H Creatinine 6.5 MG/DL (0.55-1.30) H Estimat Glomerular Filtration Rate mL/min (>60) Glucose Level 110 MG/DL (74-106) H Calcium Level 7.8 MG/DL (8.5-10.1) L Random Vancomycin Level 16.7 ug/mL Microbiology Date/Time Source Procedure Growth Status 08/09/17 04:23 Nasal Nares MRSA Culture - Final NO METHICILLIN RESISTANT STAPH AUREUS... Complete 08/11/17 10:00 Foot Left Gram Stain - Final Complete 08/11/17 10:00 Wound Culture - Final Enterococcus Faecalis Staphylococcus Sp Coag Neg Complete Baltazar Patton DPM Aug 15, 2017 17:23
--- NOTE | 2017-08-15 17:40 | Podiatric Progress Note ---
Assessment/Plan Patient Kajal Dixon is a 72 year old female who was admitted on Aug 09, 2017 at 07:03 with Problems: Assessment/Plan A/ 1) Diabetic foot ulcer - cellulitic 2) DM 3) ESRD 4) Lymphedema 5) Obese 6) PAD P/ 1) Cultures of left foot reviewed - patient on Vanco/Zosyn - Cont Vanco for foot wound 2) Arterial ultz BLE - reviewed positive for PAD BLE. Recommend vasc consult 3) MRI left ankle to reviewed - NEG for osteo, NEG for FB 4) Cont wound care orders 5) Will follow Subjective Allergies: Coded Allergies: JEREMIAH INHIBITORS (Verified Allergy, Intermediate, 08/09/17) Subjective Patient state that she is doing better but still has some pain in the left foot. Objective Exam Last 24 Hour Vital Signs Date Time Temp Pulse Resp B/P (MAP) Pulse Ox O2 Delivery O2 Flow Rate FiO2 08/15/17 16:00 98.1 94 20 107/63 92 98.1 08/15/17 12:00 98.1 93 20 114/62 93 98.1 08/15/17 12:00 98.1 93 20 114/62 93 Room Air 98.1 08/15/17 09:00 93 114/62 08/15/17 09:00 114/62 08/15/17 09:00 93 114/62 08/15/17 08:31 89 16 94 Room Air 21 08/15/17 08:31 89 16 94 Room Air 21 08/15/17 08:00 98.2 90 20 122/65 94 Room Air 98.2 08/15/17 04:04 97.7 88 19 109/61 94 97.7 08/15/17 04:00 Room Air 08/15/17 00:00 98.2 88 20 106/60 94 Room Air 98.2 08/14/17 20:42 86 115/58 08/14/17 20:00 98.1 86 20 115/58 95 98.1 08/14/17 20:00 86 Room Air Laboratory Tests Test 08/15/17 05:50 White Blood Count 9.3 K/UL (4.8-10.8) Red Blood Count 3.29 M/UL (4.20-5.40) L Hemoglobin 9.8 G/DL (12.0-16.0) L Hematocrit 32.0 % (37.0-47.0) L Mean Corpuscular Volume 97 FL (80-99) Mean Corpuscular Hemoglobin 29.8 PG (27.0-31.0) Mean Corpuscular Hemoglobin Concent 30.7 G/DL (32.0-36.0) L Red Cell Distribution Width 15.9 % (11.6-14.8) H Platelet Count 286 K/UL (150-450) Mean Platelet Volume 5.7 FL (6.5-10.1) L Neutrophils (%) (Auto) 52.0 % (45.0-75.0) Lymphocytes (%) (Auto) 28.4 % (20.0-45.0) Monocytes (%) (Auto) 16.7 % (1.0-10.0) H Eosinophils (%) (Auto) 1.3 % (0.0-3.0) Basophils (%) (Auto) 1.6 % (0.0-2.0) Sodium Level 132 MMOL/L (136-145) L Potassium Level 6.3 MMOL/L (3.5-5.1) *H Chloride Level 97 MMOL/L (98-107) L Carbon Dioxide Level 26 MMOL/L (21-32) Anion Gap 9 mmol/L (5-15) Blood Urea Nitrogen 75 mg/dL (7-18) H Creatinine 6.5 MG/DL (0.55-1.30) H Estimat Glomerular Filtration Rate mL/min (>60) Glucose Level 110 MG/DL (74-106) H Calcium Level 7.8 MG/DL (8.5-10.1) L Random Vancomycin Level 16.7 ug/mL Microbiology Date/Time Source Procedure Growth Status 08/09/17 04:23 Nasal Nares MRSA Culture - Final NO METHICILLIN RESISTANT STAPH AUREUS... Complete 08/11/17 10:00 Foot Left Gram Stain - Final Complete 08/11/17 10:00 Wound Culture - Final Enterococcus Faecalis Staphylococcus Sp Coag Neg Complete Dermatological Dermatological Narrative Left plantar foot wound looks improved. Smaller, less serous discharge. Wound edges not macerated. ENTEROCOCCUS FAECALIS GROWTH: 4+ Organism 2 STAPHYLOCOCCUS SP COAG NEG GROWTH: 4+ ENT FAECAL Baltazar Patton DPEvelia Aug 15, 2017 17:40
[2017-08-15] MEDS ORDERED: Heparin Sod 1000 units/ml 10ml IV ONE (18:15)
[2017-08-15] MEDS ORDERED: Vancomycin 1.5 GM/D5W 250ML IVPB ONE (20:00)
--- NOTE | 2017-08-15 21:02 | General Progress Note ---
Assessment/Plan Assessment/Plan 1) ESRd 2) Prolonged hypoglycemia, better now 3) No CHF 4) diabetic heel ulcer, R/o osteo Plan: IV ATB's HD done today Get vasc surgery consult Subjective Allergies: Coded Allergies: JEREMIAH INHIBITORS (Verified Allergy, Intermediate, 08/09/17) Subjective She has had HD today with 3 l removal, no c/p or sob, the heel is painful Objective Last 24 Hour Vital Signs Date Time Temp Pulse Resp B/P (MAP) Pulse Ox O2 Delivery O2 Flow Rate FiO2 08/15/17 20:00 98.1 85 19 120/64 91 Room Air 98.1 08/15/17 16:00 Room Air 08/15/17 16:00 98.1 94 20 107/63 92 98.1 08/15/17 12:00 98.1 93 20 114/62 93 98.1 08/15/17 12:00 98.1 93 20 114/62 93 Room Air 98.1 08/15/17 09:00 93 114/62 08/15/17 09:00 114/62 08/15/17 09:00 93 114/62 08/15/17 08:31 89 16 94 Room Air 21 08/15/17 08:31 89 16 94 Room Air 21 08/15/17 08:00 98.2 90 20 122/65 94 Room Air 98.2 08/15/17 04:04 97.7 88 19 109/61 94 97.7 08/15/17 04:00 Room Air 08/15/17 00:00 98.2 88 20 106/60 94 Room Air 98.2 Intake and Output 08/14/17 08/15/17 18:59 06:59 Intake Total 240 ml 55 ml Balance 240 ml 55 ml Intake Oral 240 ml IV Total 55 ml # Voids 1 Laboratory Tests 08/15/17 05:50: White Blood Count 9.3, Red Blood Count 3.29L, Hemoglobin 9.8L, Hematocrit 32.0L , Mean Corpuscular Volume 97, Mean Corpuscular Hemoglobin 29.8, Mean Corpuscular Hemoglobin Concent 30.7L, Red Cell Distribution Width 15.9H, Platelet Count 286, Mean Platelet Volume 5.7L, Neutrophils (%) (Auto) 52.0, Lymphocytes (%) (Auto) 28.4, Monocytes (%) (Auto) 16.7H, Eosinophils (%) (Auto) 1.3, Basophils (%) (Auto) 1.6, Sodium Level 132L, Potassium Level 6.3*H, Chloride Level 97L, Carbon Dioxide Level 26, Anion Gap 9, Blood Urea Nitrogen 75H, Creatinine 6.5H, Estimat Glomerular Filtration Rate , Glucose Level 110H, Calcium Level 7.8L, Random Vancomycin Level 16.7 Height (Feet): 5 Height (Inches): 3.00 Weight (Pounds): 265 General Appearance: WD/WN, no apparent distress, alert EENT: PERRL/EOMI Neck: non-tender, normal alignment Cardiovascular: normal rate, regular rhythm Respiratory/Chest: lungs clear Abdomen: normal bowel sounds, non tender Extremities: normal range of motion, non-tender Edema: mild edema 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
[2017-08-15] MEDS: Zolpidem 5mg tab ORAL PRN (21:55)
[2017-08-16] VITALS: BP 107/67
[2017-08-16] MEDS: Morphine Sulfate 2mg/ml Inj IVP PRN ×4 (00:07→18:49)
[2017-08-16] MEDS: HYDROcodone/Acetamin 10/325 tab ORAL PRN ×4 (03:37→21:02)
[2017-08-16 04:00] VITALS: BP 115/65
[2017-08-16] MEDS: Piperacillin/Tazobactam 2.25 GM in NS 55 ML IVPB SCH ×3 (06:55→21:02)
[2017-08-16] MEDS: NovoLOG Insulin Flexpen SUBQ SCH ×4 (06:55→20:47)
[2017-08-16 08:00] VITALS: BP 135/64
[2017-08-16] MEDS: Carvedilol 12.5mg tab ORAL SCH ×2 (08:41→20:47)
[2017-08-16] MEDS: Nephrovite tab (Rena-Vite) ORAL SCH (08:41)
[2017-08-16] MEDS: Amiodarone 200mg tab ORAL SCH (08:41)
[2017-08-16] MEDS: Aspirin EC 81mg tab ORAL SCH (08:41)
[2017-08-16] MEDS: Imdur 30mg tab ORAL SCH (08:41)
[2017-08-16] MEDS: Docusate 100mg cap ORAL SCH ×2 (08:43→17:42)
[2017-08-16] MEDS: Heparin 5000 units/ml inj SUBQ SCH ×2 (08:44→20:46)
[2017-08-16] MEDS: Brimonidine 0.2% Opth Sol BOTH EYES SCH ×2 (08:46→17:38)
--- NOTE | 2017-08-16 10:52 | Diagnostic Imaging Report ---
APPROVED REPORT CPT Code: 01298 Symptoms Non-healing Ulcer : Left Comments: Infection Risk Factors Obesity: Comments Nearly nondiagostic exam due to body habitus and skin condition. Technically/Limited difficult study . RIGHT LEG: Common femoral artery waveform analysis is abnormal, suggestive of iliac arterial occlusive disease. Color flow duplex sonography reveals patency of the proximal superficial femoral artery. The mid to distal superficial femoral artery was not well visualized, the popliteal artery was patent. The tibioperoneal trunk and the posterior tibial, and anterior tibial arteries were not well visualized. The dorsalis pedis artery is patent. Doppler from dorsalis tibial artery waveform analysis is compatible with moderate ischemia at rest. LEFT LEG: Common femoral artery waveform analysis is abnormal, suggestive of iliac arterial occlusive disease. Color flow duplex sonography reveals patency of the proximal superficial femoral artery. The mid to distal superficial femoral artery was not well visualized, the popliteal artery was patent. The tibioperoneal trunk and the posterior tibial, and anterior tibial arteries were not well visualized. The dorsalis pedis artery is patent. Doppler from dorsalis tibial artery waveform analysis is compatible with moderate ischemia at rest.
[2017-08-16 12:00] VITALS: BP 119/62
[2017-08-16 16:00] VITALS: BP 109/60
--- NOTE | 2017-08-16 19:36 | General Progress Note ---
Assessment/Plan Assessment/Plan 1) ESRd 2) Prolonged hypoglycemia, better now 3) No CHF 4) diabetic heel ulcer, R/o osteo Plan: IV ATB's HD tomorrow D/C home tomorrow Subjective Allergies: Coded Allergies: JEREMIAH INHIBITORS (Verified Allergy, Intermediate, 08/09/17) Subjective She is doing status quo, no c/p or sob Objective Last 24 Hour Vital Signs Date Time Temp Pulse Resp B/P (MAP) Pulse Ox O2 Delivery O2 Flow Rate FiO2 08/16/17 18:49 97.9 08/16/17 16:37 97.9 08/16/17 16:37 97.9 08/16/17 16:00 97.9 98 18 109/60 96 Room Air 97.9 08/16/17 12:00 97.3 87 18 119/62 94 Room Air 97.3 08/16/17 11:59 98.4 08/16/17 11:29 98.4 08/16/17 10:44 91 16 96 Room Air 21 08/16/17 10:43 91 16 96 Room Air 21 08/16/17 08:43 94 115/65 08/16/17 08:42 98.4 08/16/17 08:41 115/65 08/16/17 08:41 94 115/65 08/16/17 08:00 98.2 109 18 135/64 95 Nasal Cannula 98.2 08/16/17 04:00 98.4 94 20 115/65 93 Room Air 98.4 08/16/17 00:00 99.5 103 18 107/67 92 Room Air 99.5 08/15/17 21:56 85 120/64 08/15/17 20:00 98.1 85 19 120/64 91 Room Air 98.1 Intake and Output 08/15/17 08/16/17 19:00 07:00 Intake Total 240 ml Output Total 3000 ml Balance -2760 ml Intake Oral 240 ml Hemodialysis UF 3000 ml # Voids 2 Height (Feet): 5 Height (Inches): 3.00 Weight (Pounds): 267 General Appearance: no apparent distress EENT: PERRL/EOMI Neck: non-tender, normal alignment Cardiovascular: normal peripheral pulses, normal rate, regular rhythm Respiratory/Chest: lungs clear Abdomen: non tender, soft 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
[2017-08-16 19:59] VITALS: BP 108/78
[2017-08-16] MEDS ORDERED: NS 275ml ONE ×2 (20:21→20:29)
[2017-08-16] MEDS: Zolpidem 5mg tab ORAL PRN (22:21)
[2017-08-17] VITALS (8 sets, daily range): BP systolic 101–131; BP diastolic 56–74
[2017-08-17] MEDS: Morphine Sulfate 2mg/ml Inj IVP PRN ×3 (00:24→14:18)
[2017-08-17] MEDS: HYDROcodone/Acetamin 10/325 tab ORAL PRN ×3 (04:47→22:15)
[2017-08-17] MEDS: Piperacillin/Tazobactam 2.25 GM in NS 55 ML IVPB SCH ×3 (05:59→21:59)
[2017-08-17] MEDS: NovoLOG Insulin Flexpen SUBQ SCH ×4 (06:00→20:45)
[2017-08-17] MEDS ORDERED: Heparin Sod 1000 units/ml 10ml IV SCH (06:00)
[2017-08-17 07:23] LABS: EOSINOPHILS % (AUTO) 1.2 % (0.0-3.0); HEMATOCRIT 31.4 % (37.0-47.0); HEMOGLOBIN 9.8 G/DL (12.0-16.0); LYMPHOCYTES % (AUTO) 29.5 % (20.0-45.0); MEAN CORPUSCULAR VOLUME 98 FL (80-99); MONOCYTES % (AUTO) 16.7 % (1.0-10.0); NEUTROPHILS % (AUTO) 50.6 % (45.0-75.0); PLATELET COUNT 354 K/UL (150-450); RED BLOOD COUNT 3.22 M/UL (4.20-5.40); RED CELL DISTRIBUTION WIDTH 16.3 % (11.6-14.8); WHITE BLOOD COUNT 10.8 K/UL (4.8-10.8)
[2017-08-17] MEDS: Docusate 100mg cap ORAL SCH ×2 (08:08→17:04)
[2017-08-17] MEDS: Amiodarone 200mg tab ORAL SCH (08:08)
[2017-08-17] MEDS: Nephrovite tab (Rena-Vite) ORAL SCH (08:08)
[2017-08-17] MEDS: Imdur 30mg tab ORAL SCH (08:08)
[2017-08-17] MEDS: Aspirin EC 81mg tab ORAL SCH (08:08)
[2017-08-17] MEDS: Carvedilol 12.5mg tab ORAL SCH ×2 (08:08→20:24)
[2017-08-17] MEDS: Heparin 5000 units/ml inj SUBQ SCH ×2 (08:12→20:24)
[2017-08-17 08:51] LABS: ALANINE AMINOTRANSFERASE 27 U/L (12-78); ALBUMIN 1.6 G/DL (3.4-5.0); ALBUMIN/GLOBULIN RATIO 0.3 (1.0-2.7); ALKALINE PHOSPHATASE 130 U/L (46-116); ANION GAP 10 mmol/L (5-15); ASPARTATE AMINO TRANSFERASE 22 U/L (15-37); BILIRUBIN,TOTAL 0.5 MG/DL (0.2-1.0); BLOOD UREA NITROGEN 90 mg/dL (7-18); CALCIUM 7.9 MG/DL (8.5-10.1); CARBON DIOXIDE 26 MMOL/L (21-32); CHLORIDE 94 MMOL/L (98-107); CREATININE 7.3 MG/DL (0.55-1.30); POTASSIUM 5.7 MMOL/L (3.5-5.1); SODIUM 130 MMOL/L (136-145)
[2017-08-17] MEDS: Brimonidine 0.2% Opth Sol BOTH EYES SCH ×2 (08:51→17:05)
--- NOTE | 2017-08-17 11:53 | Discharge Summary ---
Discharge Summary Hospital Course Date of Admission Aug 09, 2017 at 07:03 Date of Discharge Admitting Diagnosis Hyperkalemia, Hypoglycemia HPI Kajal Dixon is a 72 year old female who was admitted on Aug 09, 2017 at 07:03 for Hyperkalemia, Hypoglycemia Hospital Course see discharge summary #[id number] Discharge Discharge Disposition Patient was discharged to Discharge Diagnoses: QUITA PRECIADO Aug 17, 2017 11:53
[2017-08-17] MEDS ORDERED: NORCO 10-325 T1 EACH ORAL (12:44)
[2017-08-17] MEDS ORDERED: COLACE100 MG ORAL (12:44)
[2017-08-17] MEDS ORDERED: BENADRYL25 MG ORAL (12:44)
[2017-08-17] MEDS ORDERED: NEURONTIN100 MG ORAL (12:44)
[2017-08-17] MEDS ORDERED: ASPIR 8181 MG ORAL (12:44)
[2017-08-17] MEDS ORDERED: ISOSORBIDE MONO60 M1 PO (12:45)
[2017-08-17] MEDS ORDERED: LEVOTHYROXINE75 MCG ORAL (12:45)
[2017-08-17] MEDS ORDERED: VANCOMYCIN1 GM IV (12:46)
[2017-08-17] MEDS ORDERED: NEPHROVITE1 TAB ORAL (12:46)
[2017-08-17] MEDS ORDERED: PROCARDIA XL90 M4 ORAL (12:46)
[2017-08-17] MEDS ORDERED: SPIRIVA18 MCG INH (12:47)
[2017-08-17] MEDS ORDERED: AMBIEN5 MG ORAL (12:47)
--- NOTE | 2017-08-18 04:00 | Discharge Summary ---
DATE OF ADMISSION: 08/09/2017 DATE OF DISCHARGE: 08/17/2017 DIAGNOSES AT DISCHARGE: 1. Episode of prolonged hypoglycemia due to glipizide that I am not sure where she got it. 2. End-stage renal disease on hemodialysis, three days a week on Tuesday, Tuesday, Fridays. 3. Evidence of diabetic foot ulcer at the heel of the left foot with some underlying infection with Enterococcus faecium. 4. Obesity. 5. Type 2 diabetes mellitus. CONSULT: Baltazar Patton D.P.M. from Podiatry. HISTORY AND PHYSICAL AND HOSPITAL COURSE: For details, please refer to the H and P and consults dictated in the chart. This is a very pleasant 72-year-old female, patient of mine who has had end-stage renal disease being on hemodialysis presented to [facility] with episode of hypoglycemia, which was prolonged and needed to be admitted. Apparently she took some glipizide. Glipizide is not in her list of her medications. She was started on D10 during course of hospitalization. Eventually her sugars became under control. However she has been having a lot of pain on the left heel, which revealed foot ulcer and culture of it is coming back Enterococcus faecium for which she was treated with vancomycin and Zosyn. MRI of the heel is showing no evidence of osteomyelitis. Dr. Crowell was also consulted and the wound care has been done. She was able to have physical therapy and stand on the foot and she got also dialyzed during the course of hospitalization. CHRIS of the arterial system of the lower extremity showing some calcific arteries and she is going to follow up with , the vascular surgeon as outpatient for her circulation of the legs. Also I am going to give her vancomycin as outpatient for a total of two more weeks with the hemodialysis session. She is going to be discharged in stable condition on 08/17/2017 and follow up with me in the dialysis unit as an outpatient. Epi Bradley M.D. DR: Consuelo JOB#: [id number] CC:
== END 2017-08-17 23:55 | disposition home or self-care (01) | DRG 637 ==
LOC: EDBD 00:58 → EMR 01:20 → UNDOADMIN 03:41 → 2E 03:41 → EDBEDREQ 04:06 → ICU 07:03 → 2W 18:00 → 4W 08-13 18:46
PROC: 5A1D70Z Performance of Urinary Filtration, Intermittent, Less than 6 Hours Per Day (ICD-10-PCS; principal; 2017-08-09)
DX: E11.649 Type 2 diabetes mellitus with hypoglycemia without coma (principal); G93.41 Metabolic encephalopathy; L97.429 Non-pressure chronic ulcer of left heel and midfoot with unspecified severity; E11.22 Type 2 diabetes mellitus with diabetic chronic kidney disease; I12.0 Hypertensive chronic kidney disease with stage 5 chronic kidney disease or end stage renal disease; E11.621 Type 2 diabetes mellitus with foot ulcer; N18.6 End stage renal disease; I48.91 Unspecified atrial fibrillation; Z68.43 Body mass index [BMI] 50.0-59.9, adult; L03.116 Cellulitis of left lower limb; E87.70 Fluid overload, unspecified; Z99.2 Dependence on renal dialysis; Z79.4 Long term (current) use of insulin; E87.5 Hyperkalemia; E11.40 Type 2 diabetes mellitus with diabetic neuropathy, unspecified; J44.9 Chronic obstructive pulmonary disease, unspecified; E66.01 Morbid (severe) obesity due to excess calories; I89.0 Lymphedema, not elsewhere classified; G47.33 Obstructive sleep apnea (adult) (pediatric); E03.9 Hypothyroidism, unspecified; B95.2 Enterococcus as the cause of diseases classified elsewhere
CPT/HCPCS: 36415; 71045; 80048; 80053; 80202; 82248; 82962; 83036; 84484; 85025; 85610; 87070; 87081; 87181; 87205; 93005; 93925; 94640; 99291; J1815; J2405